=== PATIENT | female | born 1970 | race Caucasian/White ===

== ENCOUNTER → 2020-09-10 | Outpatient (CLI) | payer OTHER ==
[~2020-09-10] MED LIST: CEFUROXIME500 MG PO; FLOMAX0.4 MG PO; GLUCOPHAGE500 MG PO; KEFLEX CAP 500500 MG PO; LIPITOR TAB 2020 MG PO; LISINOPRIL20 MG PO; METOPROLOL ER PO; MOBIC15 MG PO; NORCO 5-325 TA1 EACH PO; NORCO 7.5-3251 EACH PO; OMNICEF 300 MG300 MG PO; PERCOCET 5/325 T1 EA PO; TOPROL XL25 MG PO; VITAMIN D35000 UNI1 PO; WELLBUTRIN SR150 M1 PO; ZOFRAN ODT 4 MG4 MG PO; ZOFRAN4 MG PO
== END ==
LOC: HEART 5 08:23
DX: R06.02 Shortness of breath (principal)
CPT/HCPCS: 78452; 93306; A9502

== ENCOUNTER → 2020-12-04 | Outpatient (CLI) | payer OTHER | LOC: KOH-I 14:25 | DX: M54.5 Low back pain (principal); N20.0 Calculus of kidney | CPT/HCPCS: 74176 ==

== ENCOUNTER 2021-11-28 12:39 | Emergency (ER) | payer OTHER ==
[2021-11-28] MEDS ORDERED: CYCLOBENZAPRINE10 MG PO (17:25)
== END 2021-11-28 17:45 | disposition home or self-care (01) ==
LOC: ER1 12:39
DX: S46.911A Strain of unspecified muscle, fascia and tendon at shoulder and upper arm level, right arm, initial encounter (principal); S39.012A Strain of muscle, fascia and tendon of lower back, initial encounter; E11.9 Type 2 diabetes mellitus without complications; J44.9 Chronic obstructive pulmonary disease, unspecified; I10 Essential (primary) hypertension; F17.200 Nicotine dependence, unspecified, uncomplicated; V49.40XA Driver injured in collision with unspecified motor vehicles in traffic accident, initial encounter; Y92.410 Unspecified street and highway as the place of occurrence of the external cause
CPT/HCPCS: 72128; 72131; 73030; 99284